=== PATIENT | female | born 1940 | race Caucasian/White ===

== ENCOUNTER → 2023-01-14 14:13 | Outpatient (CLI) | payer OTHER, SELFPAY ==
--- NOTE | 2023-01-14 14:43 | DI.DEXA.S_ITS ---
Bone Density Report Name: TATI ARAIZA Age: 82 Sex: Female Ethnicity: White Date of : 1940 Indication: postmenopausal; screening for osteoporosis; Referring Provider: GERSON BRYANT Study: Bone densitometry was performed. Exam Date: January 14, 2023 Accession number: [id number] Bone Density: Region BMD T-score Z-score Classification AP Spine(L1-L4) 1.059 0.1 2.8 Normal Femoral Neck (Left) 0.654 -1.8 0.5 Osteopenia Total Hip (Left) 0.762 -1.5 0.6 Osteopenia Femoral Neck (Right) 0.654 -1.8 0.5 Osteopenia Total Hip (Right) 0.762 -1.5 0.6 Osteopenia Total Hip Mean 0.762 -1.5 0.6 Osteopenia World Health Organization criteria for BMD impression classify patients as: Normal (T-score at or above -1.0), Osteopenia (T-score between -1.0 and -2.5), or Osteoporosis (T-score at or below -2.5). 10-year Fracture Risk(1): Major Osteoporotic Fracture 14% Hip Fracture 3.8% Reported Risk Factors: [place] (), Neck BMD=0.654, BMI=24.0 (1) FRAX(R) Version 3.08. Fracture probability calculated for an untreated patient. Fracture probability may be lower if the patient has received treatment. Impression: The patient has low bone mass, based on the Left Femoral Neck T-score. The patient has an estimated ten-year risk of hip fracture of 3.8% and an estimated ten-year risk of major fracture of 14%, based on the WHO FRAX algorithm. Discussion: BONE DENSITY IS LOW AT ONE OR MORE SKELETAL SITES. THE PATIENT'S BMD AND CLINICAL RISK FACTORS CONTRIBUTE TO THIS PATIENT'S INCREASED RISK OF FRACTURE. This patient's lowest T-score is low at one or more skeletal sites. It meets the World Health Organization's (WHO) criteria for ?low bone mass? (T-score between -1.0 and -2.5). The patient's 10-year risk of hip fracture as calculated by FRAX exceeds the threshold where pharmacological therapy is recommended by the National Osteoporosis Foundation (NOF). However, all treatment decisions require clinical judgment and consideration of individual patient factors, including patient preferences, comorbidities, previous drug use, risk factors not captured in the FRAX model (e.g., frailty, falls, vitamin D deficiency, increased bone turnover, interval significant decline in bone density) and possible under or overestimation of fracture risk by FRAX. The patient should follow a healthful lifestyle (good nutrition with adequate calcium and vitamin D, and appropriate weight-bearing exercise). Follow-Up: Consider a repeat BMD and Vertebral Fracture Assessment (VFA) exam in 2 years or sooner if medically necessary, to reassess this patient's status. Reported by: GISSEL PRASAD M.D. on 01/14/2023 2:51:00 PM.
== END ==
PROVIDERS: PCP Internal Medicine; Referring Provider Internal Medicine; Visit Provider Internal Medicine
DX: Z13.820 Encounter for screening for osteoporosis (principal); M85.852 Other specified disorders of bone density and structure, left thigh; Z78.0 Asymptomatic menopausal state; Z92.23 Personal history of estrogen therapy; Z79.83 Long term (current) use of bisphosphonates
CPT/HCPCS: 77080

== ENCOUNTER → 2024-06-10 15:03 | Outpatient (CLI) | payer OTHER, SELFPAY ==
--- NOTE | 2024-06-10 15:06 | DI.NM.S_ITS ---
PROCEDURE: NM EXERCISE TREADMILL NON NUC COMPARISON: None. INDICATIONS: PAF FINDINGS: Rest ECG sinus rhythm. Calos protocol 9:10, maximum heart rate 169 bpm (129% peak predicted), maximum blood pressure 202/90, 10.1 METS, SHLOMO -51%. Exercise ECG sinus tachycardia, no ST segment changes. Paroxysmal atrial fibrillation noted in recovery. The patient did not complain of exercise-induced chest discomfort. IMPRESSION: Low risk study for ischemia. No evidence of exercise-induced ST segment changes. Paroxysmal atrial fibrillation noted in recovery however. Hypertensive response to exercise. Excellent exercise capacity. Dictated by: Marilin Groves D.O. on 06/10/2024 at 16:13 Approved by: Marilin Groves D.O. on 06/10/2024 at 16:17
== END ==
PROVIDERS: PCP Physician Assistant; Referring Provider Internal Medicine Cardiovascular Disease; Visit Provider Internal Medicine Cardiovascular Disease
DX: I48.0 Paroxysmal atrial fibrillation (principal)
CPT/HCPCS: 93017